=== PATIENT | male | born 1995 | race Caucasian/White ===

== ENCOUNTER 2019-08-27 12:29 | Emergency (ER) | payer SELFPAY ==
[2019-08-27 12:31] VITALS: BP 128/61; PULSE 69; PULSE 75; RESP 17; RESP 18; TEMP 37.1; O2SAT 96; O2SAT 97; BMI 21.6
--- NOTE | 2019-08-27 12:43 | EKG12_ITS ---
Test Reason : Blood Pressure : / mmHG Vent. Rate : 060 BPM Atrial Rate : 060 BPM P-R Int : 126 ms QRS Dur : 098 ms QT Int : 402 ms P-R-T Axes : 062 086 065 degrees QTc Int : 402 ms Sinus rhythm with marked sinus arrhythmia Otherwise normal ECG Confirmed by JUDY JONES, JOHN ([id number]), fan mail editor DREA COLE ([id number]) on 08/29/2019 9:35:01 AM Referred By: AMARA Confirmed By:MP KIM MD
--- NOTE | 2019-08-27 12:43 | RAD_ITS ---
STUDY: X-RAY CHEST REASON FOR EXAM: Male, 23 years old. GENERAL WEAKNESS, NAUSEA, DIAPHORESIS X SEVERAL DAYS, FEVER AT HOME TECHNIQUE: Single AP portable view of the chest. COMPARISON: None. FINDINGS: EKG electrodes are seen. The lungs are clear and expanded. There is no demonstrated pleural abnormality. Normal size heart. Normal mediastinum and yi. Normal visualized pulmonary arteries. Normal visualized aortic arch and descending thoracic aorta. Normal visualized thoracic spine. Normal visualized ribs, clavicles, and shoulders. There is no demonstrated abnormality of the visualized soft tissue structures of the upper abdomen. RAD/Chest 1 View (Portable) IMPRESSION: Normal x-ray examination of the chest. Electronically Signed: Oracio Benites, at 13:48 EDT , Service support ,
--- NOTE | 2019-08-27 12:44 | ED.VIS.GEN ---
History of Present Illness Chief Complaint: Nausea/Vomiting Detail of Chief Complaint: Chest and rib pain, nausea Informant: Patient Onset: Days - 4 days Context: Gradual Onset Current Severity: Moderate Maximum Severity: Moderate Narrative: Patient pleasant 4 day history of pain from his posterior ribs around to the anterior chest. He has had shortness of breath. No significant cough. He denies having fever or chills but has had some sweats. He has had some nausea but no vomiting. He has had mild diarrhea. Past Medical History - Allergies and Home Meds Allergies/Adverse Reactions: Allergies nickel Allergy (Verified 08/27/19 12:30) Rash Primary Care Physician: NOT,DEFINED [NON-STAFF] - Past Medical History: - - Patient reports history of heart problems and back problems but does not know specific diagnosis Lives: Spouse/ Significant Other Review of Systems General: Reports: Sweats. Denies: Chills, Fever Eyes: Denies: Visual changes - bilaterally ENT: Denies: Bilateral ear pain Cardiovascular: Reports: Chest pain Respiratory: Reports: Dyspnea. Denies: Cough, Sputum Gastrointestinal: Reports: Nausea, Diarrhea. Denies: Abdominal pain, Vomiting Genitourinary: Denies: Dysuria Musculoskeletal: Denies: Extremity Pain Neurological: Denies: Headache Psych: Denies: Depression Allergy: Denies: Uticaria Physical Exam Vital Signs/Narrative: Vital Signs Temp Pulse Resp BP Pulse Ox 08/27/19 12:31 98.7 F 69 17 128/61 H 96 Inital Vital Signs reviewed: Yes General: Well nourished, Well developed Head: Normocephalic ENT: Moist mucous membranes Neck: Supple Cardiovascular: Regular rate, Regular rhythm Respiratory: No distress, CTA bilaterally Abdomen: Soft, Nontender, Hypoactive bowel sounds Extremities: Nontender Skin: Normal color Neurological: Alert, Oriented x3, Normal Strength, Normal Sensation Psychological: Normal affect Diagnostic/Tx/Re-eval Impressions Chest X-Ray 08/27/19 12:43 IMPRESSION: Normal x-ray examination of the chest. Electronically Signed: Oracio Benites, at 13:48 EDT , Service support , 08/27/19 12:43 Chest 1 View (Portable) [RAD] Stat Laboratory Results 08/27/19 08/27/19 08/27/19 13:25 13:25 13:25 WBC 6.9 RBC 4.81 Hgb 14.6 Hct 43.1 MCV 89.6 MCH 30.4 MCHC 33.9 RDW Std Deviation 42.3 RDW Coeff of Anabel 12.8 Plt Count 162 MPV 9.2 Immature Gran % (Auto) 0.300 Neut % (Auto) 47.0 Lymph % (Auto) 33.8 Rhea % (Auto) 11.3 H Eos % (Auto) 6.7 H Baso % (Auto) 0.9 Absolute Neuts (auto) 3.2 Absolute Lymphs (auto) 2.33 Nucleated RBC % 0 D-Dimer Quant (PE/DVT) <= 0.27 Sodium 141 Potassium 3.9 Chloride 112 H Carbon Dioxide 26.0 Anion Gap 3 L BUN 9 Creatinine 0.92 Estim Creat Clear Calc 112.95 Est GFR (MDRD) Af Amer 129 Est GFR (MDRD) Non-Af 107 BUN/Creatinine Ratio 9.8 L Glucose 96 Calcium 8.8 Troponin I < 0.015 - EKG Initial EKG Interpretation: Sinus Rhythm - Sinus at 60 with no acute ischemia. - Medical Decision Making Patient was given Phenergan to help with nausea. He was initially ordered morphine but nurse did not give it as the patient did drive himself to the emergency room. Repeat evaluation patient is resting comfortably. Test results are discussed with him. He is concerned about possibly having Covid 19. I did advise him at this time I cannot test him. He does not meet requirements for admission. I have given him information on self-monitoring at home and encouraged him to return if symptoms worsen or has any other concerns. Will be given prescriptions for naproxen as well as Zofran. ED Disposition - Plan for ED Patient: Disposition: Home or Assisted Living Diagnosis: Chest pain Instructions: ED Chest Pain Atypical Unkn Cause Prescriptions: Naproxen [Naprosyn] 500 mg PO BID PRN PRN #20 tab PRN Reason: Pain Score 4-10/10 Transmission Status: Pending to [id number] Ondansetron [Zofran Odt] 4 mg PO Q8H PRN PRN #10 tab PRN Reason: Nausea Transmission Status: Pending to [id number] Referrals: Miguel Martinez MD [STAFF PHYSICIAN] - As Needed
--- NOTE | 2019-08-27 12:50 | NURSING ---
no old ekgs
[2019-08-27] MEDS: proMETHazine 25 MG/ML Syringe 6.25 MG IV (13:28)
[2019-08-27 13:35] LABS: Absolute Lymphocyte Count 2.33 X10^3/uL (0.83-4.51); Absolute Neutrophil Count 3.2 X10^3/uL (2.0-7.7); Basophil# 0.06 X10^3/uL; Basophil% 0.9 % (0-1); Eosinophil# 0.46 X10^3/uL; Eosinophils% 6.7 % (0-5); Hematocrit 43.1 % (40-54); Hemoglobin 14.6 g/dL (13.0-16.5); Lymphocyte # 2.33 X10^3/ul (4.0); Lymphocyte % 33.8 % (19-41); Mean Corp Hgb Conc 33.9 g/dL (32-36); Mean Corpuscular Hgb 30.4 pg (27.0-32.0); Mean Corpuscular Volume 89.6 fL (80-94); Mean Platelet Vol. 9.2 fl (6.2-12.0); Monocyte# 0.78 X10^3/uL; Monocyte% 11.3 % (0-10); NRBC Flagged by Analyzer 0 % (0-5); Neutrophil # 3.24 X10^3/uL (2.7-7.7); Platelet Count 162 K/mm3 (150-450); RBC Distribution Width CV 12.8 % (11.6-14.6); RBC Distribution Width SD 42.3 fl (35.1-43.9); Red Blood Count 4.81 M/mm3 (4.6-6.2); White Blood Count 6.9 K/mm3 (4.4-11.0)
[2019-08-27 14:04] LABS: Anion Gap 3 (5-15); BUN 9 mg/dL (7-18); BUN/Creat Ratio 9.8 RATIO (10-20); Calcium,Total 8.8 mg/dL (8.5-10.1); Chloride 112 mmol/L (98-107); Creatinine, Serum 0.92 mg/dL (0.70-1.30); EST Glomerular Filtration Rate 107 mL/min (>60); Est Glom Filt Rate - Afr Amer 129 mL/min (>60); Estimated Creatinine Clearance 112.95 ml/min; Glucose 96 mg/dL (74-106); Potassium 3.9 mmol/L (3.5-5.1); Sodium Level 141 mmol/L (136-145)
[2019-08-27 14:19] LABS: D-Dimer Quantitative (DVT/PE) <= 0.27 FEU/ug/m (0.27-0.49)
[2019-08-27 14:35] VITALS: BP 117/80; PULSE 55; RESP 13; O2SAT 99
== END 2019-08-27 14:38 | disposition home or self-care (01) ==
PROVIDERS: Emergency Provider Emergency Medicine
DX: R07.9 Chest pain, unspecified (principal); R11.0 Nausea
CPT/HCPCS: 71045; 80048; 84484; 85025; 85379; 93005; 96374; 99284